=== PATIENT | male | born 1940 | race Caucasian/White ===

== ENCOUNTER 2017-01-28 10:54 | Day surgery (SDC) | payer MEDICARE ==
[~2017-01-28 10:54] MED LIST: CYCL0.8T PO; LORTA5 PO; OMEP20TA PO; PROPOFOL 200 MG/20 ML AMP IV ONE; SIMV80TA PO; SOMA350T PO; TIMO0.5S4 RIGHT EYE; TYLE3 PO
[2017-01-28] MEDS ORDERED: SIMV80TA PO (11:38)
[2017-01-28] MEDS ORDERED: TRAM50TA PO (11:38)
[2017-01-28] MEDS ORDERED: ASPI1TAB69 PO (11:38)
[2017-01-28] MEDS ORDERED: TIMO5TAB PO (11:38)
[2017-01-28] MEDS ORDERED: SOMA350T PO (11:38)
[2017-01-28] MEDS ORDERED: OMEP20TA PO (11:38)
[2017-01-28] MEDS ORDERED: VITA250T5 PO (11:38)
--- NOTE | 2017-01-28 15:57 | EKG ---
Date Performed: 01/28/2017 Time Performed: 12:55:42 PTAGE: 76 years EKG: Sinus rhythm . Possible left anterior fascicular block Left ventricular hypertrophy by voltage only Abnormal ECG N O SIGNIFICANT CHANGE FROM PRIOR ELECTROCARDIOGRAM. PREVIOUS TRACING : 09/15/2012 07.44 DOCTOR: Inocencio Wiggins Interpretating Date/Time 01/28/2017 15:56:18
== END 2017-01-28 13:50 | disposition home or self-care (01) ==
LOC: HDOC 10:54 → HDIC 10:57 → HDOC 13:50
PROVIDERS: ATTEND Internal Medicine Cardiovascular Disease
DX: Q21.1 Atrial septal defect (principal); I63.9 Cerebral infarction, unspecified
CPT/HCPCS: 93005; 93312; 93320; 93325

== ENCOUNTER 2017-08-13 19:31 | Emergency (ER) | payer MEDICARE ==
[~2017-08-13] VITALS: Ht 172.7 cm; Wt 90.0 kg
[~2017-08-13 19:31] MED LIST changes: +ASPI1TAB69 PO; -CYCL0.8T PO; -LORTA5 PO; -OMEP20TA PO; +OMEP20TA93 PO; -PROPOFOL 200 MG/20 ML AMP IV ONE; -TIMO0.5S4 RIGHT EYE; +TIMO5TAB PO; +TRAM50TA PO; -TYLE3 PO; +VITA250T5 PO
[2017-08-13 19:35] VITALS: BP 134/60; PULSE 64; RESP 18; TEMP 98.1; O2SAT 98
[2017-08-13] MEDS ORDERED: SIMV40TA PO (19:39)
[2017-08-13] MEDS ORDERED: ASPI-516 CHEW (19:39)
[2017-08-13] MEDS ORDERED: TIMO0.5S30 RIGHT EYE (19:50)
[2017-08-13] MEDS ORDERED: FERR325C PO (19:50)
[2017-08-13] MEDS ORDERED: LEXA10TA PO (19:50)
[2017-08-13] MEDS ORDERED: RIVA4.6T T-DERMAL (19:51)
--- NOTE | 2017-08-13 19:52 | PD ---
HPI Chief Complaint: Fall Time Seen by Provider: 19:38 Travel History International Travel<30 days: No Contact w/Intl Traveler<30days: No Traveled to known affect area: No History of Present Illness HPI This patient is brought in by paramedics after he suffered a fall. Duration one hour. Symptoms severity is moderate. Patient was in the kitchen and heard the doorbell ring and was hustling up to answer the door when he tripped and fell. He denies presyncopal symptoms or syncope. He denies head or neck pain. He landed on his left shoulder. He complains of left shoulder pain which is worse with movement. No alleviating factors. Movement exacerbates the pain. Paramedics reported that his heart rate was in the 40s when they first checked him. PFSH Past Medical History Arthritis: No Asthma: No Autoimmune Disease: No Blood Disorders: No Anxiety: No Depression: No Heart Rhythm Problems: No Cancer: Yes (PROSTATE, REMOVED 5 YRS AGO) Cardiac Catheterization: No Cardiovascular Problems: Yes (PERICARDIAL EFFUSION/PERICARDIAL WINDOW 2006) High Cholesterol: Yes Chemotherapy: No Chest Pain: No Congestive Heart Failure: No COPD: No Cerebrovascular Accident: No Diabetes: No Diminished Hearing: No Endocrine: No GERD: No Glaucoma: Yes Genitourinary: No Headaches: No Hepatitis: No Hiatal Hernia: No Hypertension: No Immune Disorder: No Kidney Stones: Yes Musculoskeletal: Yes (CHRONIC LOW BACK PAIN) Neurologic: No Psychiatric: No Reproductive: No Respiratory: Yes (SLEEP APNEA) Immunizations Current: No Migraines: No Myocardial Infarction: No Radiation Therapy: No Renal Failure: No Seizures: No Sickle Cell Disease: No Sleep Apnea: No Thyroid Disease: No Ulcer: No Tetanus Vaccination: Unknown Influenza Vaccination: No Past Surgical History Abdominal Surgery: No AICD: No Appendectomy: No Arteriovenous Shunt: No Cardiac Surgery: Yes (PERICARDIAL WINDOW) Cholecystectomy: No Coronary Artery Bypass Graft: No Ear Surgery: No Endocrine Surgery: No Eye Surgery: Yes (RIGHT CATARACT EXT, RIGHT GLAUCOMA) Genitourinary Surgery: Yes (PROSTATE REMOVED 2005) Gynecologic Surgery: No Insulin Pump: No Joint Replacement: No Oral Surgery: No Pacemaker: No Prostatectomy: Yes Thoracic Surgery: No Tonsillectomy: Yes Other Surgery: Yes (PERICARDIAL WINDOW) Social History Alcohol Use: No Tobacco Use: No Substance Use: No Allergies-Medications (Allergen,Severity, Reaction): Coded Allergies: adhesive (Verified Allergy, Severe, some adhesives remove skin, paper tape stanley, 08/13/17) Reported Meds & Prescriptions Reported Meds & Active Scripts Active Percocet (Oxycodone-Acetaminophen) 5-325 mg Tab 1 Tab PO Q6H PRN Reported Exelon Patch (Rivastigmine) 4.6 mg/24 hr Patch 1 Patch T-DERMAL DAILY Iron (Ferrous Sulfate) 325 Mg Cap 325 Mg PO BIDPC Lexapro (Escitalopram Oxalate) 10 Mg Tab 10 Mg PO DAILY Timolol Opth Drops 0.5 % Soln 1 Drop RIGHT EYE BID Simvastatin 40 Mg Tab 40 Mg PO HS Aspirin 81 Mg Chew 81 Mg CHEW DAILY Soma (Carisoprodol) 350 Mg Tab 350 Mg PO QID PRN Vitamin B-12 (Cyanocobalamin) 250 Mcg Tab 250 Mcg PO DAILY Tramadol (Tramadol HCl) 50 Mg Tab 50 Mg PO Q4H PRN Omeprazole 20 Mg Tab 20 Mg PO DAILY Review of Systems General / Constitutional: No: Fever Eyes: No: Visual changes HENT: No: Headaches Cardiovascular: No: Chest Pain or Discomfort Respiratory: No: Shortness of Breath Gastrointestinal: No: Abdominal Pain Genitourinary: No: Dysuria Musculoskeletal: Positive: Arthralgias, Limited ROM, Pain Skin: No Rash Neurologic: No: Weakness Psychiatric: No: Depression Endocrine: No: Polydipsia Hematologic/Lymphatic: No: Easy Bruising Physical Exam Narrative GENERAL: Well-nourished, well-developed patient with left shoulder pain . SKIN: Focused skin assessment reveals no rash and nodules. Skin is Warm and dry. HEAD: Atraumatic. Normocephalic. EYES: Pupils equal and round. No scleral icterus. No injection or drainage. ENT: No nasal bleeding or discharge. Mucous membranes pink and moist. NECK: Trachea midline. No JVD. CARDIOVASCULAR: Regular rate and rhythm. No murmur appreciated. Heart rate is 63 RESPIRATORY: No accessory muscle use. Clear to auscultation. Breath sounds equal bilaterally. GASTROINTESTINAL: Abdomen soft, non-tender, nondistended. Hepatic and splenic margins not palpable. MUSCULOSKELETAL: Some left humeral head tenderness. No bruising or open wound. Left arm is neurovascularly intact. No clubbing. No cyanosis. No edema. NEUROLOGICAL: Awake and alert. No obvious cranial nerve deficits. Motor grossly within normal limits. Normal speech. PSYCHIATRIC: Appropriate mood and affect; insight and judgment normal. Data Data Last Documented VS Vital Signs Date Time Temp Pulse Resp B/P (MAP) Pulse Ox O2 Delivery O2 Flow Rate FiO2 08/13/17 21:12 62 18 113/65 (81) 98 Room Air 08/13/17 19:35 98.1 Orders Orders Iv Access Insert/Monitor (08/13/17 19:45) Electrocardiogram (08/13/17 ) Head Esthetician / Telemetry [id number] (08/13/17 19:45) Complete Blood Count With Diff (08/13/17 19:45) Basic Metabolic Panel (Bmp) (08/13/17 19:45) Prothrombin Time / Inr (Pt) (08/13/17 19:45) Act Partial Throm Time (Ptt) (08/13/17 19:45) Chest, Single Ap (08/13/17 ) Humerus (Min 2vws) (08/13/17 ) Shoulder, Limited(2vws) (08/13/17 ) Ondansetron Inj (Zofran Inj) (08/13/17 20:45) Morphine Inj (Morphine Inj) (08/13/17 20:45) Splint Or Brace Apply/Monitor (08/13/17 20:31) Ondansetron Inj (Zofran Inj) (08/13/17 20:32) Labs Laboratory Tests Test 08/13/17 19:51 White Blood Count 8.6 TH/MM3 Red Blood Count 4.48 MIL/MM3 Hemoglobin 14.0 GM/DL Hematocrit 40.6 % Mean Corpuscular Volume 90.5 FL Mean Corpuscular Hemoglobin 31.3 PG Mean Corpuscular Hemoglobin Concent 34.6 % Red Cell Distribution Width 16.0 % Platelet Count 159 TH/MM3 Mean Platelet Volume 10.2 FL Neutrophils (%) (Auto) 51.8 % Lymphocytes (%) (Auto) 36.7 % Monocytes (%) (Auto) 10.0 % Eosinophils (%) (Auto) 0.8 % Basophils (%) (Auto) 0.7 % Neutrophils # (Auto) 4.5 TH/MM3 Lymphocytes # (Auto) 3.2 TH/MM3 Monocytes # (Auto) 0.9 TH/MM3 Eosinophils # (Auto) 0.1 TH/MM3 Basophils # (Auto) 0.1 TH/MM3 CBC Comment AUTO DIFF Differential Comment AUTO DIFF CONFIRMED Platelet Estimate NORMAL Platelet Morphology Comment ENLARGED Ovalocytes 1+ Prothrombin Time 11.7 SEC Prothromb Time International Ratio 1.1 RATIO Activated Partial Thromboplast Time 23.1 SEC Blood Urea Nitrogen 22 MG/DL Creatinine 0.66 MG/DL Random Glucose 95 MG/DL Calcium Level 9.0 MG/DL Sodium Level 136 MEQ/L Potassium Level 4.7 MEQ/L Chloride Level 104 MEQ/L Carbon Dioxide Level 24.6 MEQ/L Anion Gap 7 MEQ/L Estimat Glomerular Filtration Rate 117 ML/MIN [facility] Medical Decision Making Medical Screen Exam Complete: Yes Emergency Medical Condition: Yes Medical Record Reviewed: Yes Differential Diagnosis Shoulder fracture, dislocation, contusion Narrative Course I have reviewed the patient's electronic medical record. IV placed CBC is normal Metabolic profile is normal Coagulation studies are normal I reviewed his EKG which shows sinus rhythm at [address] elevation Extended cardiac monitoring reveals sinus rhythm in the 60s I reviewed his chest x-ray which is normal I reviewed his left humerus x-rays which show a fracture with a fragment broken off the left humeral head I reviewed his left shoulder x-rays reveals the fracture as above I placed him in a sling and swath. I gave him IV morphine and Zofran for symptom relief. He will ice and elevated. Him some pain medication. He has an orthopedist that he will call tomorrow for follow-up. We've not seen any symptomatic or dangerous bradycardia in all the time he has been here. Diagnosis Primary Impression: Closed left humeral fracture Qualified Codes: S42.252A - Displaced fracture of greater tuberosity of left humerus, initial encounter for closed fracture Additional Instructions: The patient was advised to follow up with their orthopedist and return if they worsen. The patient was warned about potential sedation for the medications they will receive on prescription. Ice to left shoulder, wear sling Med/Other Pt SpecificInfo: Prescription(s) given Scripts Oxycodone-Acetaminophen (Percocet) 5-325 mg Tab 1 TAB PO Q6H Y for PAIN, #25 TAB 0 Refills Prov: Alex Boo MD 08/13/17 Disposition: 01 DISCHARGE HOME Condition: Stable Alex Boo MD Aug 13, 2017 19:52
[2017-08-13 20:29] LABS: AUTOMATED NEUTROPHIL # 4.5 TH/MM3 (1.8-7.7); BASOPHIL # 0.1 TH/MM3 (0-0.2); BASOPHIL % 0.7 % (0.0-2.0); EOSINOPHIL # 0.1 TH/MM3 (0-0.4); EOSINOPHIL % 0.8 % (0.0-4.0); HEMATOCRIT 40.6 % (39.0-51.0); LYMPH % 36.7 % (9.0-44.0); LYMPHOCYTE # 3.2 TH/MM3 (1.0-4.8); MEAN CELL VOLUME 90.5 FL (80.0-100.0); MEAN CORPUSCULAR HEMOGLOBIN 31.3 PG (27.0-34.0); MEAN CORPUSCULAR HGB CONC 34.6 % (32.0-36.0); NEUT % 51.8 % (16.0-70.0); PLATELET COUNT 159 TH/MM3 (150-450); RED BLOOD COUNT 4.48 MIL/MM3 (4.50-5.90); WHITE BLOOD COUNT 8.6 TH/MM3 (4.0-11.0)
[2017-08-13] MEDS ORDERED: ONDANSETRON HCL 4 MG/2 ML VIAL ONE (20:32)
[2017-08-13 20:33] LABS: HEMO FLAGS AUTO DIFF
--- NOTE | 2017-08-13 20:37 | RADRPT ---
EXAM DATE/TIME: 08/13/2017 20:04 [facility] COMPARISON: No previous studies available for comparison. INDICATIONS : Short of breath, fall. MEDICAL HISTORY : None. SURGICAL HISTORY : None. ENCOUNTER: Initial ACUITY: 1 day PAIN SCORE: 0/10 LOCATION: Bilateral chest FINDINGS: A single AP supine view of the chest demonstrates the lungs to be symmetrically aerated without evide nce of mass, infiltrate or effusion. The heart size is mildly enlarged with no perihilar edema. Athe rosclerotic changes are present in the aorta. There are overlying electrocardiogram leads. Osseous st ructures are intact with no visualize rib fracture or pneumothorax. CONCLUSION: No acute disease. Michael Cruz MD on August 13, 2017 at 20:35 Board Certified Radiologist. This report was verified electronically.
--- NOTE | 2017-08-13 20:38 | RADRPT ---
EXAM DATE/TIME: 08/13/2017 20:04 [facility] COMPARISON: CHEST SINGLE AP, August 13, 2017, 20:04. INDICATIONS : Left shoulder pain, from fall. MEDICAL HISTORY : None. SURGICAL HISTORY : None. ENCOUNTER: Initial ACUITY: 1 day PAIN SCORE: 0/10 LOCATION: Left shoulder FINDINGS: Multiple views left shoulder were obtained and demonstrate a comminuted fracture deformity of the lef t humeral head and neck. The greater tuberosity fragment is displaced laterally approximately 1 cm. T here is overlying soft tissue swelling. There is diffuse osteopenia. The glenohumeral joint and acrom ioclavicular joints are intact. CONCLUSION: Comminuted fracture deformity of the left humeral head and neck. Michael Cruz MD on August 13, 2017 at 20:36 Board Certified Radiologist. This report was verified electronically.
--- NOTE | 2017-08-13 20:39 | RADRPT ---
EXAM DATE/TIME: 08/13/2017 20:06 [facility] COMPARISON: SHOULDER LEFT LTD (2VWS), August 13, 2017, 20:04. INDICATIONS : Fall, pain in left shoulder. MEDICAL HISTORY : None. SURGICAL HISTORY : None. ENCOUNTER: Initial ACUITY: 1 day PAIN SCORE: 0/10 LOCATION: Left humerus FINDINGS: The fracture deformity of the humeral head and neck is again visualized with overlying soft tissue sw elling. The mid and distal humerus are intact in appearance. Portions of the lateral elbow were cut o ff the exam AP study. There is diffuse osteopenia. CONCLUSION: No additional fractures identified. Michael Cruz MD on August 13, 2017 at 20:37 Board Certified Radiologist. This report was verified electronically.
[2017-08-13 20:41] LABS: APTT (PATIENT) 23.1 SEC (24.3-30.1); INTERNATIONAL NORMALIZED RATIO 1.1 RATIO; PROTHROMBIN TIME - PATIENT 11.7 SEC (9.8-11.6)
[2017-08-13] MEDS ORDERED: ONDANSETRON HCL 4 MG/2 ML VIAL IV ONE (20:45)
[2017-08-13] MEDS ORDERED: MORPHINE SULFATE 4 MG/ML INJ IV PUSH ONE (20:45)
[2017-08-13 21:00] LABS: BICARBONATE 24.6 MEQ/L (21.0-32.0)
[2017-08-13 21:02] LABS: POTASSIUM 4.7 MEQ/L (3.5-5.1)
[2017-08-13 21:11] LABS: OVALOCYTES 1+ (NORMAL); PLATELET ESTIMATE SMEAR NORMAL (NORMAL); PLATELET MORPHOLOGY ENLARGED (NORMAL); SCAN/DIFF AUTO DIFF CONFIRMED
[2017-08-13 21:12] VITALS: BP 113/65; PULSE 62; RESP 18; O2SAT 98
[2017-08-13] MEDS ORDERED: PERC5TAB12 PO (21:29)
[2017-08-13] MEDS ORDERED: oxyCODONE/ACETAMINOPHEN 5 MG/325 MG TAB PO ONE (21:45)
--- NOTE | 2017-08-14 15:42 | EKG ---
Date Performed: 08/13/2017 Time Performed: 19:44:12 PTAGE: 77 years EKG: Sinus rhythm WITH SINUS ARRHYTHMIA MARKED LEFT AXIS DEVIATION LEFT VENTRICULAR HYPERTROPHY AND ST-T CHANGE ABNORM AL ECG PREVIOUS TRACING : 01/28/2017 12.55 Compared to prior tracing no significant change DOCTOR: Petrona Phan Interpretating Date/Time 08/14/2017 15:40:54
== END 2017-08-13 21:52 | disposition home or self-care (01) ==
LOC: NEPE 19:31
DX: S42.252A Displaced fracture of greater tuberosity of left humerus, initial encounter for closed fracture (principal); R94.31 Abnormal electrocardiogram [ECG] [EKG]; W01.0XXA Fall on same level from slipping, tripping and stumbling without subsequent striking against object, initial encounter; Y93.01 Activity, walking, marching and hiking; Y92.000 Kitchen of unspecified non-institutional (private) residence as the place of occurrence of the external cause
CPT/HCPCS: 71010; 73030; 73060; 80048; 85025; 85610; 85730; 93005; 96374; 96375; 99285; J2270; J2405

== ENCOUNTER → 2017-08-20 | Day surgery (SDC) | payer MEDICARE ==
[~2017-08-20] VITALS: Ht 172.7 cm; Wt 92.9 kg
[~2017-08-20] MED LIST changes: +*HYDROmorphone PF 1 MG VIAL PERIprocedural Use ONLY ONE; +ACETAMINOPHEN 1000 MG/100 ML 100 ML IV ONE; +ASPI-516 CHEW; -ASPI1TAB69 PO; +BUPIVACAINE HCL PF 0.5% 30 ML VIAL ONE; +CEPH-460 PO; +CHLORHEXIDINE GLUCONATE 2 % 1 PACK (2 CLOTHS) TOPICAL PRN; +CHLORHEXIDINE GLUCONATE 4% SOLN 120 ML BTL TOPICAL SCH; +DEXAMETHASONE SOD PHOS PF 10 MG/ML VIAL ONE; +DO NOT ADM ANY ANTICOAGULANT DRUGS PRN; +EXPAREL PERI-ARTICULAR INJECTION (TOTAL VOL. 60 ML) P-ARTICULR SCH; +FERR325C PO; +GENTAMICIN SULFATE 80 MG/2 ML VIAL ONE; +GLYCOPYRROLATE 1 MG/5 ML SYRINGE IV PUSH ONE; +KETOROLAC TROMETHAMINE 30 MG/ML (IVP) VIAL IVP ONE; +LACTATED RINGER'S 1000 ML IV PRN; +LEXA10TA PO; +LIDOCAINE HCL 1% PF 5 ML AMPULE OTHER ONE; +METOPROLOL TARTRATE 25 MG TAB PO PRN; +MIDAZOLAM HCL 2 MG/2 ML VIAL IV ONE; +MORPHINE SULFATE 4 MG/ML INJ IV PUSH PRN; +NEOSTIGMINE 3 MG/3 ML SYR IV ONE; +ONDANSETRON HCL 4 MG/2 ML VIAL IV PUSH ONE; +ONDANSETRON HCL 4 MG/2 ML VIAL IV PUSH PRN; +PERC5TAB12 PO; +PHENYLEPH/NS 1000 MCG/10 ML SYR IV ONE; +POVIDONE IODINE 5% (ANTISEPSIS KIT) 4 APPLICATIONS EACH NARE PRN; +PROPOFOL 200 MG/20 ML AMP IV ONE; +RIVA4.6T T-DERMAL; +ROCURONIUM INJ 50 MG/5 ML SYRINGE IV PUSH ONE; +SIMV40TA PO; -SIMV80TA PO; +SODIUM CHLORID 0.9% 500 ML IV PRN; +SODIUM CHLORIDE 0.9% FLUSH 5 ML FLUSH IVF PRN; +SODIUM CHLORIDE 0.9% FLUSH 5 ML FLUSH IVF SCH; +SODIUM CHLORIDE 0.9% IV SCH; +TIMO0.5S30 RIGHT EYE; -TIMO5TAB PO; +TRANEXAMIC ACID IV SCH; +ceFAZolin 2 GM PREMIX 50 ML IV SCH; +ePHEDrine/NS 25 MG/5 ML SYR IV ONE; +oxyCODONE/ACETAMINOPHEN 5 MG/325 MG TAB PO PRN
[2017-08-20 09:02] LABS: AUTOMATED NEUTROPHIL # 5.4 TH/MM3 (1.8-7.7); BASOPHIL # 0.1 TH/MM3 (0-0.2); BASOPHIL % 0.9 % (0.0-2.0); EOSINOPHIL # 0.2 TH/MM3 (0-0.4); EOSINOPHIL % 2.3 % (0.0-4.0); HEMO FLAGS DIFF FINAL; LYMPH % 23.1 % (9.0-44.0); MEAN CELL VOLUME 91.8 FL (80.0-100.0); MEAN CORPUSCULAR HGB CONC 34.9 % (32.0-36.0); MONO % 12.2 % (0.0-8.0); NEUT % 61.5 % (16.0-70.0); PLATELET COUNT 205 TH/MM3 (150-450); RED BLOOD COUNT 3.92 MIL/MM3 (4.50-5.90); WHITE BLOOD COUNT 8.7 TH/MM3 (4.0-11.0)
--- NOTE | 2017-08-20 13:19 | HHI.PR ---
Immediate Post Op Note Procedure Date: Aug 20, 2017 Pre Op Diagnosis: (1) Closed 4-part fracture of proximal end of left humerus Post Op Diagnosis: (1) Closed 4-part fracture of proximal end of left humerus Surgeon: Neo Gil MD Bottom Ironer(s): OZIEL Lacy Procedure: Open reduction and internal fixation left proximal humerus fracture Findings: 4 part fracture proximal humerus Complications: None Specimen(s) removed: None Estimated blood loss: 100 ml Anesthesia: General, Regional Block (Interscalene), Local (Exparel) Drains: None IVF Patient to: PACU Patient Condition: Good Implant/Devices: SEE IMPLANT LOG (if applicable) Date/Time of Procedure: SEE SURGICAL CARE RECORD Jonathan Gil MD (Charles) Aug 20, 2017 13:19
[2017-08-20 14:45] VITALS: BP 121/69; PULSE 81; RESP 18; TEMP 98.7; O2SAT 94
--- NOTE | 2017-08-21 08:56 | RADRPT ---
EXAM DATE/TIME: 08/20/2017 11:14 [facility] COMPARISON: HUMERUS LEFT (MIN 2VWS), August 13, 2017, 20:06. INDICATIONS : ORIF left proximal humerus. MEDICAL HISTORY : None. SURGICAL HISTORY : None. ENCOUNTER: Initial ACUITY: 1 day PAIN SCORE: Non-responsive. LOCATION: Left proximal humerus FINDINGS: 3 spot fluoroscopic images obtained in the operating room document placement of a lateral proximal hu meral side plate with multiple interlocking screws. From the oblique angles obtained, there appears t o be improved anatomic alignment. CONCLUSION: Spot fluoroscopic images obtained during left proximal humerus ORIF. Hiram Tello MD on August 21, 2017 at 8:51 Board Certified Radiologist. This report was verified electronically.
--- NOTE | 2017-08-27 13:49 | MP ---
cc: Raquel FARRELL. DATE OF SURGERY 08/20/2017 PREOPERATIVE DIAGNOSIS Closed four-part fracture proximal end left humerus. POSTOPERATIVE DIAGNOSIS Closed four-part fracture proximal end left humerus. OPERATION PERFORMED Open reduction and internal fixation left proximal humerus fracture. SURGEON Johny Farrell MD LEGISLATIVE ASSISTANT OZIEL Marquez ANESTHESIA General endotracheal with supplemental regional with interscalene block and local with Exparel. INDICATIONS AND FINDINGS This 77-year-old man had an injury to his left proximal humerus after an accidental fall. He was found to have a fracture of the proximal humerus and, upon obtaining an MRI it turned out this was a four-part fracture. Operative findings showed a four-part fracture of the proximal humerus. PROCEDURE The patient was brought to the operating room and a general endotracheal anesthetic was administered as well as an interscalene block anesthetic. He was then positioned in a beach-chair position with appropriate monitoring for cerebral flow. He received prophylactic antibiotics according to protocol. A bolster was placed behind the left shoulder. The procedure was done on a Darrel table. The shoulder was then prepped with alcohol, Hibiclens and Chloraprep and draped in the usual manner with the shoulder draped free. C-arm fluoroscopy was used for imaging. Local anesthesia was administered into the incision site with Exparel. The incision was then made paralleling the deltopectoral groove going just to the lateral aspect of the coracoid from the area of the clavicle down to the anterior axillary fold. Incision was deepened through the subcutaneous tissues to the deltopectoral groove which was opened reflecting the cephalic vein laterally. This was protected during the procedure. Retractors were placed and after developing the interval a Bankart retractor was positioned. The shoulder was then repositioned. The biceps tendon and bicipital groove was identified. The fracture site was identified as well. Suture material was placed into the posterior fragments using #1 FiberWire. The same was done in the lesser tuberosity fragment. When these sutures were made a suture was then passed through the shaft as well. The first two sutures were then used to approximate the greater tuberosity to the lesser tuberosity. Manipulation of the head fragment was carried out at this time as well bringing this into appropriate position. After these were tied, the distal-most suture was passed through the area of the insertion of the supraspinatus. When these were tied, position appeared excellent. A Katie plate was then positioned into the appropriate position and stabilized with a screw into the distal fragments and into the head with a pin. The remainder of the screw sites were then drilled, sounded and appropriate size screws placed into the humeral head using locking screws. The proximal fragment moved as one. The distal fragment was then tied in with locking screws distally. The x-rays showed excellent position, alignment and mobility. The wound was then irrigated. Local anesthesia was administered throughout the shoulder. Wound closure then commenced using 0 Vicryl interrupted [id number] sutures for fascial structures, 2-0 Vicryl interrupted simple sutures with buried knots for the subcutaneous tissues and 4-0 Monocryl continuous subcuticular closure for the skin. Steri-Strips were applied followed by Opti-Foam dressing. The patient was placed into a sling and transferred to the recovery room in satisfactory condition having tolerated the procedure well. COUNTS Correct. SPECIMENS None. ESTIMATED BLOOD LOSS 100 mL. MD KASSIDY Sanz/CLARENCE /1:07 PM /1:34 PM
== END | disposition home or self-care (01) ==
LOC: HSDC 07:44
PROVIDERS: ATTEND Orthopaedic Surgery
DX: S42.202A Unspecified fracture of upper end of left humerus, initial encounter for closed fracture (principal); W19.XXXA Unspecified fall, initial encounter
CPT/HCPCS: 01630; 23615; 73060; 76000; 85025; C1713; C9290; J0131; J0690; J1100; J1170; J1580; J1885; J2250; J2370; J2405; J2710; J3010; J7120

== ENCOUNTER 2017-08-30 09:40 | Emergency (ER) | payer MEDICARE ==
[~2017-08-30] VITALS: Ht 167.6 cm; Wt 90.0 kg
[~2017-08-30 09:40] MED LIST changes: -*HYDROmorphone PF 1 MG VIAL PERIprocedural Use ONLY ONE; -ACETAMINOPHEN 1000 MG/100 ML 100 ML IV ONE; -BUPIVACAINE HCL PF 0.5% 30 ML VIAL ONE; -CEPH-460 PO; -CHLORHEXIDINE GLUCONATE 2 % 1 PACK (2 CLOTHS) TOPICAL PRN; -CHLORHEXIDINE GLUCONATE 4% SOLN 120 ML BTL TOPICAL SCH; -DEXAMETHASONE SOD PHOS PF 10 MG/ML VIAL ONE; -DO NOT ADM ANY ANTICOAGULANT DRUGS PRN; -EXPAREL PERI-ARTICULAR INJECTION (TOTAL VOL. 60 ML) P-ARTICULR SCH; -GENTAMICIN SULFATE 80 MG/2 ML VIAL ONE; -GLYCOPYRROLATE 1 MG/5 ML SYRINGE IV PUSH ONE; -KETOROLAC TROMETHAMINE 30 MG/ML (IVP) VIAL IVP ONE; -LACTATED RINGER'S 1000 ML IV PRN; -LIDOCAINE HCL 1% PF 5 ML AMPULE OTHER ONE; -METOPROLOL TARTRATE 25 MG TAB PO PRN; -MIDAZOLAM HCL 2 MG/2 ML VIAL IV ONE; -MORPHINE SULFATE 4 MG/ML INJ IV PUSH PRN; -NEOSTIGMINE 3 MG/3 ML SYR IV ONE; -ONDANSETRON HCL 4 MG/2 ML VIAL IV PUSH ONE; -ONDANSETRON HCL 4 MG/2 ML VIAL IV PUSH PRN; -PHENYLEPH/NS 1000 MCG/10 ML SYR IV ONE; -POVIDONE IODINE 5% (ANTISEPSIS KIT) 4 APPLICATIONS EACH NARE PRN; -PROPOFOL 200 MG/20 ML AMP IV ONE; -ROCURONIUM INJ 50 MG/5 ML SYRINGE IV PUSH ONE; -SODIUM CHLORID 0.9% 500 ML IV PRN; -SODIUM CHLORIDE 0.9% FLUSH 5 ML FLUSH IVF PRN; -SODIUM CHLORIDE 0.9% FLUSH 5 ML FLUSH IVF SCH; -SODIUM CHLORIDE 0.9% IV SCH; -TRANEXAMIC ACID IV SCH; -ceFAZolin 2 GM PREMIX 50 ML IV SCH; -ePHEDrine/NS 25 MG/5 ML SYR IV ONE; -oxyCODONE/ACETAMINOPHEN 5 MG/325 MG TAB PO PRN
[2017-08-30 09:42] VITALS: BP 142/67; PULSE 65; RESP 14; TEMP 98; O2SAT 97
[2017-08-30 10:42] LABS: AUTOMATED NEUTROPHIL # 3.4 TH/MM3 (1.8-7.7); BASOPHIL # 0.1 TH/MM3 (0-0.2); BASOPHIL % 1.2 % (0.0-2.0); EOSINOPHIL # 0.1 TH/MM3 (0-0.4); EOSINOPHIL % 1.8 % (0.0-4.0); HEMO FLAGS DIFF FINAL; LYMPH % 30.4 % (9.0-44.0); LYMPHOCYTE # 1.9 TH/MM3 (1.0-4.8); MEAN CORPUSCULAR HEMOGLOBIN 32.4 PG (27.0-34.0); MEAN CORPUSCULAR HGB CONC 34.4 % (32.0-36.0); NEUT % 54.6 % (16.0-70.0); PLATELET COUNT 286 TH/MM3 (150-450); RED BLOOD COUNT 3.93 MIL/MM3 (4.50-5.90); RED CELL DISTRIBUTION WIDTH 14.3 % (11.6-17.2); WHITE BLOOD COUNT 6.2 TH/MM3 (4.0-11.0)
--- NOTE | 2017-08-30 11:03 | RADRPT ---
EXAM DATE/TIME: 08/30/2017 10:41 [facility] COMPARISON: No previous studies available for comparison. INDICATIONS : Fell 3 weeks ago, pain with bruising and swelling left wrist. MEDICAL HISTORY : Fx. left shoulder SURGICAL HISTORY : ORIF left shouder ENCOUNTER: Initial ACUITY: 3 weeks PAIN SCORE: 9/10 LOCATION: Left wrist FINDINGS: AP, lateral and oblique views of the wrist were obtained and demonstrate soft tissue swelling over th e dorsum of the wrist no malalignment. On the lateral exam there is a small osseous structure along t he dorsum of the wrist which could represent a small triquetral fracture. The distal radius and ulna are intact. There are mild degenerative changes with sclerosis. CONCLUSION: Questionable small triquetral fracture on the lateral exam with overlying soft tissue swelling. Michael Cruz MD on August 30, 2017 at 10:55 Board Certified Radiologist. This report was verified electronically.
[2017-08-30 11:06] LABS: ALT (GPT) 26 U/L (12-78); ANION GAP 7 MEQ/L (5-15); AST (GOT) 21 U/L (15-37); BICARBONATE 30.3 MEQ/L (21.0-32.0); BLOOD UREA NITROGEN 13 MG/DL (7-18); CHLORIDE 102 MEQ/L (98-107); GLOMERULAR FILTRATION RATE 131 ML/MIN (>89); SODIUM (NA) 139 MEQ/L (136-145)
[2017-08-30 11:09] LABS: ALKALINE PHOSPHATASE 109 U/L (45-117); TOTAL BILIRUBIN ADULT 1.4 MG/DL (0.2-1.0)
--- NOTE | 2017-08-30 11:12 | RADRPT ---
EXAM DATE/TIME: 08/30/2017 10:41 [facility] COMPARISON: No previous studies available for comparison. INDICATIONS : Left arm swelling and pain. MEDICAL HISTORY : Hypercholesterolemia. Osteoarthritis. Glaucoma. Cardiac disorder. Hyperlipidem ia. Sleep apnea. Prostate cancer. Kidney stones. Pericardial effussion. SURGICAL HISTORY : Tonsillectomy. Prosectomy. Right carpel tunnel. Left shoulder surgery. ENCOUNTER: Initial ACUITY: 3 weeks PAIN SCORE: 5/10 LOCATION: Left arm. FINDINGS: There is spontaneous flow documented in the brachial, basilic, cephalic, axillary, and subclavian vei ns. The vessels are compressible and augmentation response is documented. No filling defects are se en. The flow is phasic with respiration. Direction of flow in the jugular vein is caudal. CONCLUSION: Negative exam with no evidence of the venous thrombosis. Michael Cruz MD on August 30, 2017 at 11:06 Board Certified Radiologist. This report was verified electronically.
[2017-08-30] MEDS ORDERED: CEPH-460 PO (12:29)
--- NOTE | 2017-08-30 12:29 | PD ---
HPI Chief Complaint: Pain: Acute or Chronic Time Seen by Provider: 10:12 Travel History International Travel<30 days: No Contact w/Intl Traveler<30days: No Traveled to known affect area: No History of Present Illness HPI Patient is a 77-year-old male who comes in complaining of redness to his left arm. He had surgery for a fracture of his left shoulder performed on August 20 , and says things have been going fine but then he noticed the redness yesterday. He has been wearing a sling on that arm. He says it is slightly tender to the touch. He also complains of pain to his left hand/wrist, and says this was never x-rayed. He denies fever or chills. There has not been any leaking of fluids from his surgical wound. He has not noticed increased swelling to the arm. [facility] Past Medical History Arthritis: No Asthma: No Autoimmune Disease: No Blood Disorders: No Anxiety: No Depression: No Heart Rhythm Problems: No Cancer: Yes (PROSTATE, REMOVED 10 YRS AGO) Cardiac Catheterization: No Cardiovascular Problems: Yes (PERICARDIAL EFFUSION/PERICARDIAL WINDOW 2006) High Cholesterol: Yes Chemotherapy: No Chest Pain: No Congestive Heart Failure: No COPD: No Cerebrovascular Accident: No Diabetes: No Diminished Hearing: No Endocrine: No GERD: No Glaucoma: Yes Genitourinary: No Headaches: No Hepatitis: No Hiatal Hernia: No Hypertension: No Immune Disorder: No Kidney Stones: Yes Musculoskeletal: Yes (CHRONIC LOW BACK PAIN) Neurologic: No Psychiatric: No Reproductive: No Respiratory: Yes (SLEEP APNEA) Immunizations Current: No Migraines: No Myocardial Infarction: No Radiation Therapy: No Renal Failure: No Seizures: No Sickle Cell Disease: No Sleep Apnea: No Thyroid Disease: No Ulcer: No Past Surgical History Abdominal Surgery: No AICD: No Appendectomy: No Arteriovenous Shunt: No Cardiac Surgery: Yes (PERICARDIAL WINDOW) Cholecystectomy: No Coronary Artery Bypass Graft: No Ear Surgery: No Endocrine Surgery: No Eye Surgery: Yes (BILATERAL CATARACT EXT, RIGHT GLAUCOMA) Genitourinary Surgery: Yes (PROSTATE REMOVED 2005) Gynecologic Surgery: No Insulin Pump: No Joint Replacement: No Oral Surgery: No Pacemaker: No Prostatectomy: Yes Thoracic Surgery: No Tonsillectomy: Yes Other Surgery: Yes (PERICARDIAL WINDOW) Social History Alcohol Use: No Tobacco Use: No Substance Use: No Allergies-Medications (Allergen,Severity, Reaction): Coded Allergies: adhesive (Verified Allergy, Severe, some adhesives remove skin, paper tape stanley, 08/20/17) Reported Meds & Prescriptions Reported Meds & Active Scripts Active Percocet (Oxycodone-Acetaminophen) 5-325 mg Tab 1 Tab PO Q6H PRN Reported Exelon Patch (Rivastigmine) 4.6 mg/24 hr Patch 1 Patch T-DERMAL DAILY Iron (Ferrous Sulfate) 325 Mg Cap 325 Mg PO BIDPC Lexapro (Escitalopram Oxalate) 10 Mg Tab 10 Mg PO DAILY Timolol Opth Drops 0.5 % Soln 1 Drop RIGHT EYE BID Simvastatin 40 Mg Tab 40 Mg PO HS Aspirin 81 Mg Chew 81 Mg CHEW DAILY Soma (Carisoprodol) 350 Mg Tab 350 Mg PO QID PRN Vitamin B-12 (Cyanocobalamin) 250 Mcg Tab 250 Mcg PO DAILY Tramadol (Tramadol HCl) 50 Mg Tab 50 Mg PO Q4H PRN Omeprazole 20 Mg Tab 20 Mg PO DAILY Review of Systems General / Constitutional: No: Fever, Chills HENT: No: Headaches, Lightheadedness Cardiovascular: No: Chest Pain or Discomfort Respiratory: No: Shortness of Breath Gastrointestinal: No: Nausea, Vomiting Genitourinary: No: Dysuria Musculoskeletal: No: Myalgias Skin: Positive Change in Pigmentation Neurologic: No: Weakness, Dizziness Physical Exam Narrative GENERAL: Awake and alert, in no acute distress. SKIN: Focused skin assessment warm/dry. Erythema along the medial side of the left forearm, from the elbow to the wrist, warm to the touch. Surgical site appears clean and dry with no evidence of infection. HEAD: Atraumatic. Normocephalic. EYES: Pupils equal and round. No scleral icterus. ENT: No nasal bleeding or discharge. Mucous membranes pink and moist. CARDIOVASCULAR: Regular rate and rhythm. No murmur appreciated. RESPIRATORY: No accessory muscle use. Clear to auscultation. Breath sounds equal bilaterally. MUSCULOSKELETAL: No obvious deformities. No clubbing. No cyanosis. No edema. Left radial pulse intact. Tender to palpation of the left wrist. NEUROLOGICAL: Awake and alert. No obvious cranial nerve deficits. Motor grossly within normal limits. Normal speech. Data Data Last Documented VS Vital Signs Date Time Temp Pulse Resp B/P (MAP) Pulse Ox O2 Delivery O2 Flow Rate FiO2 08/30/17 09:42 98.0 65 14 142/67 (92) 97 Orders Orders Us Arm Venous Doppler (08/30/17 ) Wrist, Complete ([id number]) (08/30/17 ) Complete Blood Count With Diff (08/30/17 10:21) Comprehensive Metabolic Panel (08/30/17 10:21) Iv Access Insert/Monitor (08/30/17 10:21) Splint Or Brace Apply/Monitor (08/30/17 11:57) Labs Laboratory Tests Test 08/30/17 10:30 White Blood Count 6.2 TH/MM3 Red Blood Count 3.93 MIL/MM3 Hemoglobin 12.7 GM/DL Hematocrit 37.0 % Mean Corpuscular Volume 94.0 FL Mean Corpuscular Hemoglobin 32.4 PG Mean Corpuscular Hemoglobin Concent 34.4 % Red Cell Distribution Width 14.3 % Platelet Count 286 TH/MM3 Mean Platelet Volume 9.1 FL Neutrophils (%) (Auto) 54.6 % Lymphocytes (%) (Auto) 30.4 % Monocytes (%) (Auto) 12.0 % Eosinophils (%) (Auto) 1.8 % Basophils (%) (Auto) 1.2 % Neutrophils # (Auto) 3.4 TH/MM3 Lymphocytes # (Auto) 1.9 TH/MM3 Monocytes # (Auto) 0.7 TH/MM3 Eosinophils # (Auto) 0.1 TH/MM3 Basophils # (Auto) 0.1 TH/MM3 CBC Comment DIFF FINAL Differential Comment Blood Urea Nitrogen 13 MG/DL Creatinine 0.60 MG/DL Random Glucose 97 MG/DL Total Protein 7.0 GM/DL Albumin 3.5 GM/DL Calcium Level 9.2 MG/DL Alkaline Phosphatase 109 U/L Aspartate Amino Transf (AST/SGOT) 21 U/L Alanine Aminotransferase (ALT/SGPT) 26 U/L Total Bilirubin 1.4 MG/DL Sodium Level 139 MEQ/L Potassium Level 4.0 MEQ/L Chloride Level 102 MEQ/L Carbon Dioxide Level 30.3 MEQ/L Anion Gap 7 MEQ/L Estimat Glomerular Filtration Rate 131 ML/MIN [facility] Medical Decision Making Medical Screen Exam Complete: Yes Emergency Medical Condition: Yes Medical Record Reviewed: Yes Differential Diagnosis Wrist fracture versus cellulitis versus DVT Narrative Course Patient is a 77-year-old male who comes in complaining of redness to his left arm. Exam shows erythema and warmth of the left forearm. IV established, labs sent. Labs show no acute abnormalities. Ultrasound of the arm performed shows no evidence of blood clot. X-ray of the wrist shows a triquetral fracture. I spoke with Dr. [facility], who is covering for Dr. Gil, who suggests able or splint and follow-up in the office on Saturday. Patient be discharged with a prescription for Keflex in case this is a bit of cellulitis. I believe he might be having a reaction to the material the splint. He is advised to rest his arm on a pillow when seated at home rather than wearing a splint. Advised to follow-up with Dr. Gil on Saturday. Advised to return to the ED as needed for any worsening symptoms. Diagnosis Primary Impression: Hand fracture, left Qualified Codes: S62.92XA - Unspecified fracture of left wrist and hand, initial encounter for closed fracture Additional Impression: Skin irritation Patient Instructions: General Instructions, Hand Fracture (ED) Additional Instructions: Follow-up with Dr. Gil on Saturday. Take all of the antibiotic. Keep the sling off when resting at home and keep her arm on a pillow. Return to the ED as needed for any worsening symptoms. Scripts Cephalexin (Keflex) 500 Mg Capsule 500 MG PO Q6H for Infection, #7 CAP 0 Refills Prov: Vickie Sandoval MD 08/30/17 Disposition: 01 DISCHARGE HOME Condition: Stable Vickie Sandoval MD Aug 30, 2017 12:29
== END 2017-08-30 13:03 | disposition home or self-care (01) ==
LOC: NEPC 09:40
DX: S62.112A Displaced fracture of triquetrum [cuneiform] bone, left wrist, initial encounter for closed fracture (principal); M79.89 Other specified soft tissue disorders; X58.XXXA Exposure to other specified factors, initial encounter
CPT/HCPCS: 29125; 73110; 80053; 85025; 93971